=== PATIENT | male | born 1955 | race Caucasian/White ===

== ENCOUNTER 2016-11-11 12:34 | Inpatient (IN) | payer OTHER ==
[~2016-11-11] VITALS: Ht 170.2 cm; Wt 95.5 kg
--- NOTE | 2016-11-11 16:05 | DIAGNOSTIC IMAGING REPORT ---
PROCEDURE: ABDOMEN/PELVIS WITH CONTRAST CLINICAL INDICATION: GI BLEED TECHNIQUE: 125 ml of Isovue 300 were injected intravenously and axial images were obtained of the abdomen and pelvis with sagittal and coronal reformations. COMPARISON: None. FINDINGS: ABDOMEN: Focal area of slight contour irregularity and mucosal hyperemia involving the pyloric channel and first portion of the duodenum with trace amount of adjacent inflammation. No extraluminal gas. There is hyperdense material within the proximal stomach, potentially clot. No other perigastric inflammation. Clear lung bases. Normal sized heart. No hiatal hernia. The liver, gallbladder, adrenal glands, kidneys, pancreas and spleen are normal. The abdominal aorta is normal in its course and caliber. Trace atherosclerosis. There are no suspicious calcifications, retroperitoneal adenopathy or masses. The stomach, upper bowel loops, and mesentery are normal. Intact anterior abdominal wall. PELVIS: The appendix and pelvic small bowel loops are normal. Small amount of liquid stool in the proximal colon. There is otherwise decompression of the distal colon and rectum. The prostate gland is mildly enlarged. The seminal vesicles, urinary bladder, and pelvic vessels are normal. No adenopathy, free fluid, or pelvic mass. Intact osseous structures with mild degenerative disc changes in the lumbar spine. IMPRESSION: 1. Mild mucosal irregularity and hyperemia in the distal stomach/proximal duodenum raising possibility of peptic ulcer disease with blood in the proximal stomach. No CT evidence of perforation. Dieulafoy lesion should be considered given lack of significant perigastric inflammation, but less likely. 2. Discussed with Dr. Mcfarland in the emergency room. All CT scans at this facility use dose modulation, iterative reconstruction, and/or weight-based dosing when appropriate to reduce radiation dose to as low as reasonably achievable.
--- NOTE | 2016-11-11 17:18 | ED NURSING NOTES ---
Clinical Report - Nurses [facility] [address] [place] [address] 11/11/2016 12:36 [id number] Triage time 12:37 Nov 11 2016. Acuity: LEVEL 3. Chief Complaint: VOMITING and DIARRHEA. Alert. No acute distress. STEPHANY COMA SCORE: Oblong Coma Scale: 15- eyes open spontaneously (4); best verbal response- oriented x 4 (5); best motor response- obeys commands (6). --12:45 Polly Shields R.N. 12:37 11/11/16. BP: 141/72. HR: 94. RR: 16. O2 saturation: 94%. Temp: 97.6 F. Pain level now: 0/10. --12:45 Polly Shields R.N. Weight: 97.5 kg stated. Height/Length: 67 inches Per Patient. BMI: 33.7. --12:44 Polly Shields R.N. Medications OXAPROZIN Oral (Tablet 600 mg) 2 tablets, daily. --12:38 Polly Shields R.N. Diclofenac Sodium topical gel. --12:39 Polly Shields R.N. Tylenol Oral 1500 mg, 2x a day. --12:39 Polly Shields R.N. Fish Oil Oral (Capsule 1000 mg) 2 capsules, daily. --12:41 Polly Shields R.N. Tumerx. --12:41 Polly Shields R.N. Allergies No Known Drug Allergy. --12:42 Polly Shields R.N. History Arrived by EMS. Historian: patient. This started today. Last oral intake by patient was (about 5 AM). Treatment REHABILITATION SERVICES COORDINATOR: None. IV fluid given (500 mL bolus). BP: 116 / palp. HR: 90. PAST MEDICAL HX: Immunizations: up-to-date. SOCIAL HX: Never smoker. No alcohol use or drug use. No recent travel. No infectious disease exposure. No known contact with a sick individual. SELF HARM ASSESSMENT: A self harm assessment was performed. The patient answered "no" to the question "Do you have thoughts of harming or killing yourself?". FALL RISK ASSESSMENT: Fall risk assessment completed. No fall risk identified. NUTRITIONAL RISK ASSESSMENT: The nutritional risk assessment revealed no deficiencies. FUNCTIONAL ASSESSMENT: Functional assessment: no impairments noted. LEARNING NEEDS ASSESSMENT: The learning needs assessment revealed no barriers. ABUSE ASSESSMENT: Abuse assessment: The patient was asked "Do you feel safe in your home?". SKIN INTEGRITY ASSESSMENT: Skin integrity risk assessment completed. No skin integrity risk identified. --12:45 Polly Shields R.N. PROBLEMS: Arthritis. --12:42 Polly Shields R.N. Interventions ID band on patient. To room. --12:45 Polly Shields R.N. 12:43 11/11/2016 Site #1 started prior to arrival by EMS via IV in the right antecubital space with an 18g angiocath. Saline lock flushed with 10 mL saline. --12:43 Polly Shields R.N. PHYSICAL ASSESSMENT GENERAL / NEURO / PSYCH: Alert. Appears in no acute distress. RESPIRATORY: Respirations not labored. CVS: Capillary refill less than 2 seconds. GI / : Abdomen soft and nontender. Blood present in the stool. coffee ground appearance. SKIN: Skin is warm and dry. --12:47 Polly Shields R.N. NURSING PROGRESS NOTES Patient gowned. Head of bed elevated. Patient identifiers checked. Call light placed in reach. Side rails up x 1. Bed placed in lowest position. Brakes of bed on. --12:47 Polly Shields R.N. 13:20 11/11/2016 Started bag #1 1000 mL IV Fluids IV NS (Saline); bolus of 1000 mL over 1 hour(s) via site #1. Allergies verified and confirmed 5 rights. IV patency established. IV site checked: no pain, redness, or swelling. IV flushed thoroughly pre- and post-medication administration. --13:25 Polly Shields R.N. 13:24 11/11/2016 PROTONIX (Pantoprazole Sodium) IVP 80 mg given over 5 minute(s) via site #1. Allergies verified and confirmed 5 rights. IV patency established. IV site checked: no pain, redness, or swelling. IV flushed thoroughly pre- and post-medication administration. IVP given by RN. --13:24 Polly Shields R.N. 14:20 11/11/16. BP: 97/59. HR: 75. RR: 16. O2 saturation: 91%. Pain level now: 0/10. --14:23 Polly Shields R.N. Patient ID band checked for patient name and birthdate: patient confirmed. Patient verbalized understanding. Clean catch urine collected with return of yellow-colored clear urine; sample sent to lab. Specimen labeled in the presence of the patient. ( pt up to bedside commode. No dizziness reported. drk red/black liquid stool in commode.). --14:23 Polly Shields R.N. ( small amt of liquid bloody stool in commode.). --14:23 Polly Shields R.N. 15:00 11/11/16. BP: 117/66. O2 saturation: 96%. --16:52 Polly Shields R.N. 16:28 11/11/2016 IV Fluids IV NS Discontinued: bag #1 completed. Total amount infused: 1000 mL. --16:53 Polly Shields R.N. DISPOSITION / DISCHARGE Patient's personal items include: upper denture, shorts drivers license,; items were placed in belongings bag, given to the patient and transported with the patient. Collection of belongings was witnessed by nurse. --17:41 Polly Shields R.N. 17:42 11/11/16. BP: 121/71. HR: 91. RR: 16. O2 saturation: 98%. Pain level now: 0/10. --17:43 Polly Shields R.N. Report was given to a nurse via a phone call. Report included patient's care, treatment, medications, reviewed medication reconcilliation, and condition (including any recent changes or anticipated changes). All questions were answered. Report was acknowledged. --18:09 Polly Shields R.N. Locked/Released at 11/11/2016 23:14 by Polly Shields R.N.
--- NOTE | 2016-11-11 17:18 | ED ORDER SUMMARY ---
..... Patient: NATALY GUEVARA OrderSheet [facility] VisitID: [id number] [place] [address] 61y, M Registration Date/Time: 11/11/2016 ORDER SHEET Weight: 97.5 kg (stated) Allergies: No Known Drug Allergy GENERAL ORDERS: CBC w Diff Urgent (13:12 11/11/2016 Precious Whitlock) (Ack 13:20 Leonardo) (13:25 KKnebel R.N.) CMP Urgent (13:12 11/11/2016 Precious Whitlock) (Ack 13:20 Leonardo) (13:25 Meghanbel R.N.) PT with INR Urgent (13:12 11/11/2016 Precious Whitlock) (Ack 13:20 Leonardo) (13:25 KKnebel R.N.) PTT Urgent (13:12 11/11/2016 Precious Whitlock) (Ack 13:20 Leonardo) (13:25 KKnebel R.N.) CT Abd/Pel w Cont (No) (37/1.1) Urgent (14:35 11/11/2016 Precious Whitlock) (Ack 14:38 Leonardo) (16:05 KKnebel R.N.) MEDICATION ORDERS: IV FLUIDS: IV NS : initial bolus none -, then 1000 mL/hr for X1 (NOW) (13:12 11/11/2016 Precious Whitlock) (13:25 KKnebel R.N.) Protonix IVP 80mg 80 mg (Mix in NS 20ml over 4min) (13:12 11/11/2016 Precious Whitlock) (13:24 KKnebel R.N.) ORDER SHEET NOTES: [Electronically signed by Cayden Mcfarland Dr. (18:26 11/11/2016)] [Electronically signed by Polly Shields R.N. (23:14 11/11/2016)] [Electronically locked/signed by Polly Shields R.N. (23:14 11/11/2016)]
--- NOTE | 2016-11-11 17:18 | ED ORDER SUMMARY ---
..... Patient: NATALY GUEVARA OrderSheet [facility] VisitID: [id number] [place] [address] 61y, M Registration Date/Time: 11/11/2016 ORDER SHEET Weight: 97.5 kg (stated) Allergies: No Known Drug Allergy GENERAL ORDERS: CBC w Diff Urgent (13:12 11/11/2016 Precious Whitlock) (Ack 13:20 Leonardo) (13:25 KKnebel R.N.) CMP Urgent (13:12 11/11/2016 Precious Whitlock) (Ack 13:20 Leonardo) (13:25 Meghanbel R.N.) PT with INR Urgent (13:12 11/11/2016 Precious Whitlock) (Ack 13:20 Leonardo) (13:25 KKnebel R.N.) PTT Urgent (13:12 11/11/2016 Precious Whitlock) (Ack 13:20 Leonardo) (13:25 KKnebel R.N.) CT Abd/Pel w Cont (No) (37/1.1) Urgent (14:35 11/11/2016 Precious Whitlock) (Ack 14:38 Leonardo) (16:05 KKnebel R.N.) MEDICATION ORDERS: IV FLUIDS: IV NS : initial bolus none -, then 1000 mL/hr for X1 (NOW) (13:12 11/11/2016 Precious Whitlock) (13:25 KKnebel R.N.) Protonix IVP 80mg 80 mg (Mix in NS 20ml over 4min) (13:12 11/11/2016 Precious Whitlock) (13:24 KKnebel R.N.) ORDER SHEET NOTES: [Electronically signed by Cayden Mcfarland Dr. (18:26 11/11/2016)] [Electronically signed by Polly Shields R.N. (23:14 11/11/2016)] [Electronically locked/signed by Polly Shields R.N. (23:14 11/11/2016)]
--- NOTE | 2016-11-11 17:18 | ED CLINICAL REPORT ---
Clinical Report - Physicians/Mid Levels [facility] [address] [place] [address] 11/11/2016 12:36 Patient: NATALY GUEVARA Time Seen: 12:56; initial patient contact. Arrived- By ambulance. Historian- patient. HISTORY OF PRESENT ILLNESS Chief Complaint: RECTAL BLEEDING. This started today, has been moderate and is still present (persistent). It was abrupt in onset and has been intermittent. The patient has had dark stools, rectal bleeding, nausea, vomiting and diarrhea. He has not had rectal pain or hard stools. No constipation or abdominal pain. (Pt is on NSAID's daily for several months for OA.). No known contact with a sick individual. Similar symptoms previously: None. Recent medical care: Not recently seen/assessed. REVIEW OF SYSTEMS The patient has had dizziness. No fever, abdominal pain, constipation or easy bruising. He has had black stools, bloody stools, diarrhea, nausea and vomiting. All systems otherwise negative, except as recorded above. PAST HISTORY OA. Medications: Tumerx. Fish Oil Oral (Capsule 1000 mg) 2 capsules, daily. Tylenol Oral 1500 mg, 2x a day. Diclofenac Sodium topical gel. OXAPROZIN Oral (Tablet 600 mg) 2 tablets, daily. Allergies: No Known Drug Allergy. SOCIAL HISTORY Never smoker. No alcohol use or drug use. ADDITIONAL NOTES The nursing notes have been reviewed. PHYSICAL EXAM Vital Signs: 11/11/2016 12:37 BP: 141/72. HR: 94. RR: 16. O2 saturation: 94%. Temp: 97.6 F. Pain level now: 0/10. Have been reviewed. Hypertensive. Heart rate normal. Respiratory rate normal. Temperature normal. Oxygen saturation low. Appearance: Alert. Oriented X3. Eyes: Eyes normal inspection. ENT: Pharynx normal. CVS: Normal heart rate and rhythm. Heart sounds normal. Respiratory: No respiratory distress. Breath sounds normal. Abdomen: Soft and nontender. Bowel sounds normal. No organomegaly. No mass. Rectal: Strongly heme-positive stool; blood streaks present in the stool; stools are dark colored; hemoccult manager quality improvement check passed. (POC test reference range: negative). Dark bloody stool. Rectal exam nontender. Skin: Skin warm and dry. Normal skin color. Extremities: No lower extremity edema. Neuro: Oriented X 3. LABS, X-RAYS, AND EKG Abdominal CT: 1. Mild mucosal irregularity and hyperemia in the distal stomach/proximal duodenum raising possibility of peptic ulcer disease with blood in the proximal stomach. No CT evidence of perforation. Dieulafoy lesion should be considered given lack of significant perigastric inflammation, but less likely. Abdominal CT performed with IV contrast. Interpretation time: 16:18. Laboratory Tests: CBC w Diff: (DENNIS: 11/11/2016 13:00) ( MsgRcvd 11/11/2016 13:19) Final results Test Result Flag Units (Reference) WHITE BLOOD COUNT 12.3 H K/uL (4.5-11.5) RED BLOOD COUNT 3.99 L M/uL (4.50-5.90) HEMOGLOBIN 11.5 L gm/dL (13.5-17.5) HEMATOCRIT 34.9 L % (41.0-53.0) MEAN CELL VOLUME 88 fL (80-100) MEAN CORPUSCULAR HGB 29 pg (26-34) MEAN CORPUSCULAR HGB CONC 33 g/dL (31-37) RED CELL DISTRIBUTION WIDTH 13.2 % (11.6-14.8) PLATELET COUNT 255 K/uL (150-400) NEUTROPHIL % 90.8 H % (50-75) LYMPH % 4.7 L % (25-40) MONO % 4.0 % (3-14) EOSINOPHIL % 0.1 % (0-4) BASOPHIL % 0.4 % (0-2) PT with INR: (DENNIS: 11/11/2016 13:00) ( MsgRcvd 11/11/2016 13:30) Final results Test Result Flag Units (Reference) INR 1.0 (0.8-1.2) Low Intensity Therapy: INR 1.5-2.0 PT range 18.5-23.1Mod.Intensity Therapy: INR 2.0-3.0 PT range 23.1-31.5High Intensity Therapy: INR 2.5-3.5 PT range 27.4-35.5High Intensity Therapy 2: INR 3.0-4.0 PT range 31.5-39.3 APTT 22 L SECONDS (24-34) CMP: (DENNIS: 11/11/2016 13:00) ( MsgRcvd 11/11/2016 13:35) Final results Test Result Flag Units (Reference) GLUCOSE 160 H mg/dL (70-110) BUN 37 H mg/dL (7-18) CREATININE 1.1 mg/dL (0.6-1.3) Estimated GFR >60 mL/min Estimated GFR- >60 mL/min Note: Persistent reduction over 3 months in eGFR<60 mL/min/1.73 m2 defines CKD. Patients with eGFR values>=60 mL/min/1.73 m2 may also have CKD if evidence ofpersistent proteinuria. Additional information may be foundat www.kidney.org. SODIUM 142 mmol/L (136-145) POTASSIUM 5.4 H mmol/L (3.5-5.1) CHLORIDE 109 H mmol/L (98-107) CARBON DIOXIDE 26 mmol/L (21-32) CALCIUM 8.1 L mg/dL (8.5-10.1) TOTAL PROTEIN 6.0 L g/dL (6.4-8.2) ALBUMIN 2.9 L g/dL (3.3-5.0) BILIRUBIN, TOTAL 0.4 mg/dL (0.0-1.0) ALKALINE PHOSPHATASE 49 U/L (46-116) AST (SGOT) 17 U/L (15-37) ALT (SGPT) 29 U/L (12-78) . PROGRESS AND PROCEDURES Discussed case with hospitalist, (call returned 16:21 Dr. Britton. Will be accepting MD.). Reviewed test results and need for additional work-up. Health care provider will see patient in ED. Consult obtained from surgery. call returned 15:04 Dr. Keen. As long as pt is stable, will scope in the AM. Asked for hospitalist to admit. Disposition: Admitted to the Critical Care Unit. Condition: stable. Admit decision based on need for monitoring, stabilization of condition and surgery. CLINICAL IMPRESSION Major GI bleed with hematochezia and hypotension. INSTRUCTIONS Follow-up: Screening today revealed the patient's blood pressure to be in the pre-hypertensive range. The patient was admitted and blood pressure will be managed during the admission. (Electronically signed by Cayden Mcfarland Dr. 11/11/2016 18:26)
[2016-11-11 19:09] VITALS: BP 129/78
[2016-11-11 20:13] VITALS: BP 109/51
[2016-11-11 21:00] VITALS: BP 116/69
[2016-11-11] MEDS ORDERED: DAYPRO600 MG PO (21:19)
[2016-11-11] MEDS ORDERED: VOLTAREN1 % TOP (21:20)
--- NOTE | 2016-11-11 21:23 | HISTORY AND PHYSICAL ---
ADMITTED: 11/11/2016 CHIEF COMPLAINT: 1. Black stool HISTORY OF PRESENT ILLNESS: This is a 61-year-old white male who had nausea with vomiting at 5:00 a.m. today. At 10:00 a.m., he went to the bathroom and noticed diarrhea with black stool. Since then, the patient had 6-8 times like that. The patient also progressively became weak to the point that he was bent over the toilet, noticed by his . According to his , he also passed out once. He felt quite dizzy and weak, so the patient was transferred to the emergency department for further evaluation. MEDICAL/SURGICAL HISTORY: Past medical history is remarkable for degenerative joint disease of the knee. Surgical history is remarkable for knee replacement. Hospitalization: None, except when he had the knee replacement. MEDICATIONS: 1. He takes Oxaprozin 600 mg 2 a day for the last month, but denies any other NSAID. 2. Also diclofenac topical ointment. ALLERGIES: 1. THE PATIENT HAS NO KNOWN DRUG ALLERGY. SOCIAL HISTORY: The patient is , has 2 kids. No history of smoking, alcohol, or drug abuse. FAMILY HISTORY: Remarkable for diabetes mellitus. REVIEW OF SYSTEMS: No recent weight changes. Some hearing loss. No blurred vision. No runny nose or congestion. No cough or sore throat. No palpitations. No shortness of breath or chest pain. No abdominal pain. No dysuria, frequency, or incontinence. He has some pain in the knee. No headaches. Dizziness, as described above. No tingling , no numbness. No localized weakness, but syncope as described above. PHYSICAL EXAMINATION: VITAL SIGNS: Blood pressure 141/72, pulse is 94, respirations 16, oxygen saturation 94% in room air, temperature is 97.6. But blood pressure, I have to mention it dropped to the 90s over 60s and had to be resuscitated with IV fluids, which responded well. GENERAL APPEARANCE: Well developed, well nourished, good body build. No acute distress at this time. HEENT: Ears: Normal tympanic membranes. Nose: Normal mucosa. Mouth: Normal hypopharynx, no exudation, no erythema. NECK: Supple. No JVD. No carotid bruit. LUNGS: Clear to auscultation. No rhonchi or wheezing or crackles. HEART: Regular S1, S2. No murmur. No S3. ABDOMEN: Soft, nontender. Bowel sounds are positive. EXTREMITIES: No edema. Good peripheral pulses. No signs of DVT or cyanosis. MUSCULOSKELETAL SYSTEM: Grossly within normal limits. NEUROLOGIC: Alert and oriented x3. Cranial nerves are grossly intact. No motor deficits. Pupils are equal, round, and reactive to light. Extraocular movements are intact. No nystagmus. No cerebellar signs. LAB/IMAGING: CT of the abdomen shows a lesion in the stomach area consistent with ulcer but nonperforating. White blood count is 12.3, hemoglobin 11.5, hematocrit is 34.9, and platelet count is 255. INR is 1, PTT is 22. Glucose is 160, BUN is 37, creatinine is 1.1, sodium is 142, potassium is 5.4, chloride is 109, CO2 is 26, calcium is 8.1. Liver enzymes unremarkable. IMPRESSION: 1. Upper gastrointestinal bleed. 2. Mild anemia due to #1 probably. 3. Degenerative joint disease of the knees. PLAN: Dr. Slater has been consulted and is aware of the patient. Per his plan and my plan, the patient will be admitted to the intensive care unit. We will hydrate the patient aggressively and hold 2 units of blood and monitor hemoglobin and hematocrit closely. If needed, transfuse him. The patient will be on intravenous Protonix and Oxaprozin will be put on hold. CODE STATUS: I discussed the code status with the patient. He definitely does not want intubation or defibrillation; therefore, NO CPR. So this has been documented.
--- NOTE | 2016-11-11 21:31 | HISTORY AND PHYSICAL ---
ADMITTED: 11/11/2016 ADDENDUM I discussed the code status with the patient. He definitely does not want intubation or defibrillation; therefore, NO CPR. So this has been documented.
[2016-11-11 22:00] VITALS: BP 132/75
[2016-11-11 23:12] VITALS: BP 115/41
--- NOTE | 2016-11-11 23:14 | ED MAR SUMMARY ---
..... Medication Administration Record [facility] [address] [place] [address] Patient: NATALY GUEVARA Visit ID: [id number] 61y, M Weight: 97.5 kg Height/Length: 67 in BMI: 33.7 ALLERGIES: No Known Drug Allergy Start 13:20 11/11/2016 Polly Shields R.N., Stop 16:28 11/11/2016 Polly Shields R.N. Medication Administered: IV NS (SALINE), Dose: IV Fluids, Bolus: 1000 mL over 1 hour(s), Dispensed: 1000 mL bag, Site: #1 right AC. Medication Ordered: IV NS : initial bolus none -, then 1000 mL/hr for X1 (NOW). Given 13:24 11/11/2016 Polly Shields RSanjay Medication Administered: PROTONIX [IVP] (PANTOPRAZOLE SODIUM), Dose: 80 mg IVP over 5 minute(s), Site: #1 right AC. Medication Ordered: Protonix IVP 80mg 80 mg (Mix in NS 20ml over 4min).
--- NOTE | 2016-11-11 23:14 | ED MAR SUMMARY ---
..... Medication Administration Record [facility] [address] [place] [address] Patient: NATALY GUEVARA Visit ID: [id number] 61y, M Weight: 97.5 kg Height/Length: 67 in BMI: 33.7 ALLERGIES: No Known Drug Allergy Start 13:20 11/11/2016 Polly Shields R.N., Stop 16:28 11/11/2016 Polly Shields R.N. Medication Administered: IV NS (SALINE), Dose: IV Fluids, Bolus: 1000 mL over 1 hour(s), Dispensed: 1000 mL bag, Site: #1 right AC. Medication Ordered: IV NS : initial bolus none -, then 1000 mL/hr for X1 (NOW). Given 13:24 11/11/2016 Polly Shields RSanjay Medication Administered: PROTONIX [IVP] (PANTOPRAZOLE SODIUM), Dose: 80 mg IVP over 5 minute(s), Site: #1 right AC. Medication Ordered: Protonix IVP 80mg 80 mg (Mix in NS 20ml over 4min).
--- NOTE | 2016-11-11 23:14 | ED MED RECONCILIATION SUMMARY ---
Patient: NATALY GUEVARA Medication Reconciliation Report [facility] VisitID: [id number] [address] [place] [address] 61y, M Registration Date/Time: 11/11/2016 Weight: 97.5 kg Height/Length: 67 in. BMI: 33.7 ALLERGIES: No Known Drug Allergy The patient's Home Medications are listed below: THE FOLLOWING MEDICATIONS NEED TO BE RECONCILED: Diclofenac Sodium topical gel Fish Oil Oral (1000 mg) 2 capsules, daily OXAPROZIN Oral (600 mg) 2 tablets, daily Tumerx Tylenol Oral 1500 mg, 2x a day The source(s) of the original Home Medication information: Not obtained. The following Medications were given to the patient in the Emergency Department: PROTONIX [IVP] IVP 80 mg, administered: 11/11/2016 1:24:00 PM IV NS IV Fluids bolus 1000 mL over 1 hour(s), administered: 11/11/2016 1:20:00 PM The following Medications were prescribed to the patient: None.
--- NOTE | 2016-11-11 23:14 | ED DISCHARGE INSTRUCTIONS ---
Patient: NATALY GUEVARA General Instructions [facility] VisitID: [id number] [address] [place] [address] 61y, M Registration Date/Time: 11/11/2016 Major GI bleed with hematochezia and hypotension. INSTRUCTIONS Follow-up: Screening today revealed the patient's blood pressure to be in the pre-hypertensive range. The patient was admitted and blood pressure will be managed during the admission. (Electronically signed by Cayden Mcfarland Dr. 11/11/2016 18:26)
--- NOTE | 2016-11-11 23:14 | ED MED RECONCILIATION SUMMARY ---
Patient: NATALY GUEVARA Medication Reconciliation Report [facility] VisitID: [id number] [address] [place] [address] 61y, M Registration Date/Time: 11/11/2016 Weight: 97.5 kg Height/Length: 67 in. BMI: 33.7 ALLERGIES: No Known Drug Allergy The patient's Home Medications are listed below: THE FOLLOWING MEDICATIONS NEED TO BE RECONCILED: Diclofenac Sodium topical gel Fish Oil Oral (1000 mg) 2 capsules, daily OXAPROZIN Oral (600 mg) 2 tablets, daily Tumerx Tylenol Oral 1500 mg, 2x a day The source(s) of the original Home Medication information: Not obtained. The following Medications were given to the patient in the Emergency Department: PROTONIX [IVP] IVP 80 mg, administered: 11/11/2016 1:24:00 PM IV NS IV Fluids bolus 1000 mL over 1 hour(s), administered: 11/11/2016 1:20:00 PM The following Medications were prescribed to the patient: None.
--- NOTE | 2016-11-11 23:14 | ED DISCHARGE INSTRUCTIONS ---
Patient: NATALY GUEVARA General Instructions [facility] VisitID: [id number] [address] [place] [address] 61y, M Registration Date/Time: 11/11/2016 Major GI bleed with hematochezia and hypotension. INSTRUCTIONS Follow-up: Screening today revealed the patient's blood pressure to be in the pre-hypertensive range. The patient was admitted and blood pressure will be managed during the admission. (Electronically signed by Cayden Mcfarland Dr. 11/11/2016 18:26)
[2016-11-12] VITALS (16 sets, daily range): BP systolic 100–141; BP diastolic 48–85
--- NOTE | 2016-11-12 06:15 | Progress Note ---
Subjective General Doing much better, no cp no palpitaiton, no dypnea, no nause vomiting or abd. pain, did not have any black stool since yesterday, no fever or chills Physical Exam Vital Signs / I&Os Vital Signs Date Time Temp Pulse Resp B/P Pulse O2 O2 Flow FiO2 Ox Delivery Rate 11/12 0601 98.6 66 19 96 Room Air 0.0 11/12 0511 66 15 111/48 95 Room Air 0.0 11/12 0426 62 16 100/55 95 Room Air 0.0 11/12 0308 68 16 100/48 94 Room Air 0.0 11/12 0208 98.8 63 16 114/66 94 Room Air 0.0 11/12 0121 70 17 110/48 96 Room Air 0.0 11/12 0011 76 16 119/54 96 Room Air 0.0 11/11 2312 70 18 115/41 95 Room Air 0.0 11/11 2200 98.8 81 19 132/75 96 Room Air 11/11 2100 99.0 77 21 116/69 96 Room Air 11/11 2013 99.0 76 19 109/51 94 Room Air 11/11 1909 98.8 80 20 129/78 96 Room Air I&O 11/12 0000 11/11 1600 11/11 0800 Intake Total 0 Output Total 850 Balance -850 General Appearance No acute distress Lungs Clear to auscultation Neck Supple Cardiovascular Regular rate and rhythm, Normal S1 and S2, No murmurs, gallops, rubs Abdomen Normal bowel sounds, Soft, No tenderness Extremities No edema Skin No Rashes Psych/Mental Status Mental status normal LAB Results Laboratory Tests 11/12 11/12 11/12 11/11 11/11 0345 0330 1385 5533 2125 Chemistry Plasma Sodium (136 - 145 mmol/L) 144 Plasma Potassium (3.5 - 5.1 mmol/L) 3.8 Plasma Chloride (98 - 107 mmol/L) 109 CO2 (Enzymatic) (21 - 32 mmol/L) 27 BUN (7 - 18 mg/dL) 29 Creatinine (0.6 - 1.3 mg/dL) 1.0 Est GFR ( Amer) (mL/min) >60 Est GFR (Non-Af Amer) (mL/min) >60 Glucose (70 - 110 mg/dL) 88 Plasma Calcium (8.5 - 10.1 mg/dL) 8.0 Hematology WBC (4.5 - 11.5 K/uL) 7.5 RBC (4.50 - 5.90 M/uL) 3.27 Hgb (13.5 - 17.5 gm/dL) 9.7 Cancelled 9.8 10.0 10.7 Hct (41.0 - 53.0 %) 28.8 Cancelled 28.8 30.8 32.0 MCV (80 - 100 fL) 88 MCH (26 - 34 pg) 30 RDW (11.6 - 14.8 %) 13.1 Neut % (Auto) (50 - 75 %) 68.9 Lymph % (Auto) (25 - 40 %) 21.6 [place] % (Auto) (3 - 14 %) 7.9 Eos % (Auto) (0 - 4 %) 1.1 Baso % (Auto) (0 - 2 %) 0.5 Plt Count, EDTA (150 - 400 K/uL) 233 PUBS MCHC (31 - 37 g/dL) 34 05/20 1300 Chemistry Plasma Sodium (136 - 145 mmol/L) 142 Plasma Potassium (3.5 - 5.1 mmol/L) 5.4 Plasma Chloride (98 - 107 mmol/L) 109 CO2 (Enzymatic) (21 - 32 mmol/L) 26 BUN (7 - 18 mg/dL) 37 Creatinine (0.6 - 1.3 mg/dL) 1.1 Est GFR ( Amer) (mL/min) >60 Est GFR (Non-Af Amer) (mL/min) >60 Glucose (70 - 110 mg/dL) 160 Plasma Calcium (8.5 - 10.1 mg/dL) 8.1 Total Bilirubin (0.0 - 1.0 mg/dL) 0.4 AST (15 - 37 U/L) 17 ALT (12 - 78 U/L) 29 Alkaline Phosphatase (46 - 116 U/L) 49 Total Protein (6.4 - 8.2 g/dL) 6.0 Albumin (3.3 - 5.0 g/dL) 2.9 Coagulation INR (0.8 - 1.2) 1.0 APTT (24 - 34 SECONDS) 22 Hematology WBC (4.5 - 11.5 K/uL) 12.3 RBC (4.50 - 5.90 M/uL) 3.99 Hgb (13.5 - 17.5 gm/dL) 11.5 Hct (41.0 - 53.0 %) 34.9 MCV (80 - 100 fL) 88 MCH (26 - 34 pg) 29 RDW (11.6 - 14.8 %) 13.2 Neut % (Auto) (50 - 75 %) 90.8 Lymph % (Auto) (25 - 40 %) 4.7 [place] % (Auto) (3 - 14 %) 4.0 Eos % (Auto) (0 - 4 %) 0.1 Baso % (Auto) (0 - 2 %) 0.4 Plt Count, EDTA (150 - 400 K/uL) 255 PUBS MCHC (31 - 37 g/dL) 33 Microbiology Date/Time Procedure - Status Source Growth 11/12 0000 MRSA Screen - RECD NOSE Assessment and Plan Problem List 1. Upper GI bleed Plan will have EGD today, on IV hydration 2. Anemia Plan most probably due to GI bleed, will monitor not requiring transfusion yet 3. DJD (degenerative joint disease) of knee Plan pain controlled
[2016-11-12] MEDS ORDERED: PROTONIX40 M1 IV (14:25)
[2016-11-12] MEDS ORDERED: PROTONIX40 MG PO (14:33)
--- NOTE | 2016-11-13 02:29 | CONSULTATION REPORT ---
DATE OF CONSULTATION: 11/12/2016 CHIEF COMPLAINT: 1. Rectal bleeding 2. Hematemesis HISTORY OF PRESENT ILLNESS: The patient is a 61-year-old man who came to the hospital yesterday with rectal bleeding of sudden onset. He also threw up blood at one point. He has had some dark stools, but he denies abdominal pain. He has had no pain in the rectum and has no family history of gastrointestinal malignancy. The patient is on NSAIDs and has osteoarthritis pending a knee replacement. MEDICAL/SURGICAL HISTORY: Past medical history of osteoarthritis. MEDICATIONS: 1. Prazosin (nonsteroidal anti-inflammatory drug) 600 mg b.i.d. 2. Diclofenac topical gel. 3. Tylenol 1500 mg 2 times a day. 4. Fish oil. ALLERGIES: 1. NONE TO MEDICATIONS. SOCIAL HISTORY: The patient is nonsmoker, does not take alcohol. He is . He works at [employer]. FAMILY HISTORY: His father of some unknown type of cancer. Mother had dementia. REVIEW OF SYSTEMS: A multipoint review of systems was obtained on admission. The patient denies other unrelated symptoms. He has been in good health otherwise, other than his painful left knee, which limits his ability to work when he is not taking medication for it. He denies ear and nose problems, sinus problems, shortness of breath, palpitations, chest pain, unexpected weight loss. PHYSICAL EXAMINATION: GENERAL: The patient is alert and cooperative. He appears in no acute distress and is not currently having problems with melena or hematemesis. HEENT: Her ears and nose are without gross external lesions. His eyes are equal. There is no icterus. NECK: Without palpable masses or thyromegaly. CHEST: Clear without wheeze or rales. There are no spider angioectasias in the upper chest. HEART: Regular, without murmur or gallop. ABDOMEN: Reveals no localized tenderness. There is no ascites. No palpable hepatosplenomegaly. Bowel sounds are active. EXTREMITIES: Symmetric and he appears to move without any neurologic deficits. LAB/IMAGING: Initial hemoglobin and hematocrit are 11.5 and 34.9, and hemoglobin has dropped to 10. His white count is 12.3. Abdominal CT scan showed mild mucosal irregularity and hyperemia in the distal stomach and proximal duodenum suggesting possible peptic ulcer disease. There is not much perigastric inflammation and the radiologist raises the possibility of a Dieulafoy's anomaly. INR is normal. Glucose is elevated at 160. Bilirubin and liver enzymes are normal. IMPRESSION: 1. Gastrointestinal bleed, possible nonsteroidal anti-inflammatory drug related ulcer PLAN: I recommend doing an upper gastrointestinal endoscopy. I explained to the patient and his family the nature of this procedure as well as alternatives, benefits and risks. Risks discussed included perforation and inducing bleeding. I also talked but hemostatic methods that we occasionally used if there is active bleeding encountered. We also discussed his strategy to treat his osteoarthritis, in the event that there is a diagnosis of nonsteroidal anti-inflammatory drug induced ulcerations.
--- NOTE | 2016-11-13 02:32 | OPERATIVE REPORT ---
DATE OF SURGERY: 11/12/2016 SURGEON: Ra Slater MD PREOPERATIVE DIAGNOSIS: 1. Gastrointestinal bleed POSTOPERATIVE DIAGNOSES: 1. Pyloric channel ulcer 2. Gastric ulcers PROCEDURE PERFORMED: 1. Esophagogastroduodenoscopy with biopsies ANESTHESIA: Total IV general. INDICATIONS: The patient is a 62-year-old man who presented with melena and hematemesis. The patient is on nonsteroidals for osteoarthritis. SURGICAL TECHNIQUE: The patient was taken to the endoscopy suite, where total IV general was administered and the patient was placed in the left lateral decubitus position. A well-lubricated endoscope was inserted into the stomach and duodenum under direct vision. There was no active bleeding seen. There was no coffee-ground material or blood. The duodenum was normal after the bulb. In the pyloric channel and proximal duodenal bulb, there was a moderately deep ulcer without visible vessel or adherent clot. This was not in the part of the bulb easily seen over the gastroduodenal artery. Additionally , in the antrum itself, there were several shallow erosions or "pill" ulcers. None of these appeared to have recently bled. The retroflexed view of the upper stomach was normal. A single biopsy was taken near the antrum for Helicobacter testing. The rest of the endoscopy revealed no additional bleeding sources and the patient left in good condition. In summary, this patient has low to moderate rebleeding risk. I discussed the situation with Dr. Britton and advised that his diet can be resumed and he can be treated with medications. In the short-term, it would be quiroz to avoid nonsteroidal anti-inflammatories and in the long-term, this treatment strategy will have to be determined by the patient's primary physician.
--- NOTE | 2016-11-13 02:40 | DISCHARGE SUMMARY ---
ADMIT DATE: 11/11/2016 DISCHARGE DATE: 11/12/2016 DISCHARGE DIAGNOSES: 1. Upper gastrointestinal bleed due to peptic ulcer disease and pyloric channel 2. Anemia secondary to upper gastrointestinal bleed 3. Degenerative joint disease of the knee BRIEF HISTORY: This is a 61-year-old white male who was admitted yesterday with a chief complaint of black stool. The patient developed nausea with some vomiting at 5 a.m. the day of the admission and then 10 a.m. Later on, the patient went to bathroom and noticed black stool, which was loose, along with fresh blood too. This happened 6 to 8 times to the point that the patient progressively became weak and at one point he even passed out. So the patient was transferred to the emergency department for further evaluation. The patient was feeling dizzy and weak during this time. HOSPITAL COURSE: The patient was admitted to hospital and was started on IV hydration with IV Protonix and also 2 units of red blood cells was typed and crossed, on hold. The patient did well through the night. The lowest hemoglobin is 9 and did not require any transfusion. Dr. Slater surgical consult was obtained already. The patient finally had and EGD which showed superficial ulcer in H. pylori channel. There was not any active bleeding and bleeding had stopped definitely. The patient was given a green light from Dr. Slater to be discharged home on a PPI and to stay away from NSAIDs. DISCHARGE INSTRUCTIONS/MEDICATIONS: So the patient will be discharged home to follow up with his primary care physician as an outpatient within 1 week. Discharge medications: Protonix 40 mg daily. The patient was instructed not to take oxaprozin or any other NSAIDs at least for 2 weeks. The patient can use any other types of analgesic, like Tylenol for his arthritis in the knee and also can consult with his primary care physician for more pain management.
== END 2016-11-12 15:40 | disposition home or self-care (01) | DRG 378 ==
LOC: ED SRH 12:34 → TRANS SRH 16:52 → CC SRH 17:01
PROVIDERS: Surgery; ADMIT Family Medicine
PROC: 0DB78ZX Excision of Stomach, Pylorus, Via Natural or Artificial Opening Endoscopic, Diagnostic (ICD-10-PCS; principal; 2016-11-12 13:30)
DX: K25.4 Chronic or unspecified gastric ulcer with hemorrhage (principal); T39.395A Adverse effect of other nonsteroidal anti-inflammatory drugs [NSAID], initial encounter; D62 Acute posthemorrhagic anemia; M17.10 Unilateral primary osteoarthritis, unspecified knee
CPT/HCPCS: 50004; 60001; 82943; 83526; 90001; 90047; 90074; 90100; 90155; 90705; 91004; 91162; 91163; 92132; 94001; 94060; 95059